=== PATIENT | male | born 1945 | race Hispanic/Latino ===

== ENCOUNTER 2017-08-20 16:15 | Observation (INO) | payer MEDICARE, OTHER ==
--- NOTE | 2017-08-20 16:59 | CT ---
PROCEDURE: CT HEAD WITHOUT CONTRAST. HISTORY: Code Stroke COMPARISON: None available. TECHNIQUE: Axial computed tomography images were obtained through the head/brain without intravenous contrast. Radiation dose: Total exam DLP = 759.00 mGy-cm. This CT exam was performed using one or more of the following dose reduction techniques: Automated exposure control, adjustment of the mA and/or kV according to patient size, and/or use of iterative reconstruction technique. FINDINGS: HEMORRHAGE: No intracranial hemorrhage. BRAIN: No mass effect or edema. Mild age-appropriate atrophy. Mild periventricular white matter lucency with scattered foci of deep and subcortical white matter lucency, consistent with chronic microvascular ischemic change. No evidence of acute infarct. VENTRICLES: Unremarkable. No hydrocephalus. CALVARIUM: Unremarkable. PARANASAL SINUSES: Unremarkable as visualized. No significant inflammatory changes. MASTOID AIR CELLS: Unremarkable as visualized. No inflammatory changes. OTHER FINDINGS: None. IMPRESSION: No intracranial hemorrhage. No evidence of acute infarct. Age-appropriate involutional changes. These findings were discussed by telephone with Dr. Gayle at 5 p.m. on 08/20/2017.
--- NOTE | 2017-08-20 17:00 | ED PDOC ---
Arrival/HPI - General Chief Complaint: Weakness/Neurological Deficit Time Seen by Provider: 08/20/17 16:17 Historian: Patient - History of Present Illness Narrative History of Present Illness (Text): 08/20/17 16:35 A 72 year old male, whose past medical history includes hypertension, hyperlipidemia, CAD s/p stent, presents to the emergency department complaining of left arm numbness that developed an hour prior to arrival. Patient became concerned because he reports symptoms feel similar to previous [facility]. Patient denies any other complaints at this time. no other weakness, or other complaints. 08/20/17 17:29 Time/Duration: 1 hour Symptom Onset: Sudden Symptom Course: Unchanged Activities at Onset: Rest Context: Home Past Medical History - Provider Review Nursing Documentation Reviewed: Yes - Tetanus Immunization Tetanus Immunization: Unknown - Cardiac Hx Cardiac Disorders: Yes Hx Hypertension: Yes - Pulmonary Hx Respiratory Disorders: No - Neurological Hx Neurological Disorder: No Hx Paralysis: No - HEENT Hx HEENT Disorder: No - Renal Hx Renal Disorder: No - Endocrine/Metabolic Hx Endocrine Disorders: No - Hematological/Oncological Hx Blood Disorders: No Hx Blood Transfusions: No - Integumentary Hx Dermatological Disorder: No - Musculoskeletal/Rheumatological Hx Falls: No - Gastrointestinal Hx Gastrointestinal Disorders: No - Genitourinary/Gynecological Hx Genitourinary Disorders: Yes Hx Reproductive Disorders: No - Psychiatric Hx Psychophysiologic Disorder: No Hx Emotional Abuse: No Hx Physical Abuse: No Hx Substance Use: No - Surgical History Hx Coronary Stent: Yes (x7) - Anesthesia Hx Anesthesia Reactions: No Hx Malignant Hyperthermia: No - Suicidal Assessment Feels Threatened In Home Enviroment: No Family/Social History - Physician Review Nursing Documentation Reviewed: Yes Family/Social History: No Known Family HX Smoking Status: Never Smoked Hx Alcohol Use: No Hx Substance Use: No Hx Substance Use Treatment: No Allergies/Home Meds Allergies/Adverse Reactions: Allergies No Known Allergies Allergy (Verified 08/20/17 16:32) Home Medications: Home Meds Medication Instructions Recorded Confirmed Metoprolol Succinate [Toprol XL] 50 mg PO DAILY 01/10/16 08/20/17 Review of Systems - Physician Review All systems were reviewed & negative as marked: Yes - Review of Systems Constitutional: absent: Fevers Musculoskeletal: Other (left arm numbness) Neurological: absent: Headache, Dizziness Physical Exam Vital Signs Reviewed: Yes Vital Signs Temp Pulse Resp BP Pulse Ox 08/20/17 16:28 97.9 F 68 15 151/91 H 96 Temperature: Afebrile Blood Pressure: Hypertensive Pulse: Regular Respiratory Rate: Normal Appearance: Positive for: Well-Appearing, Non-Toxic, Comfortable Pain Distress: None Mental Status: Positive for: Alert and Oriented X 3 - Systems Exam Head: Present: Atraumatic, Normocephalic Pupils: Present: PERRL Extroacular Muscles: Present: EOMI Conjunctiva: Present: Normal Mouth: Present: Moist Mucous Membranes Neck: Present: Normal Range of Motion Respiratory/Chest: Present: Clear to Auscultation, Good Air Exchange. No: Respiratory Distress, Accessory Muscle Use Cardiovascular: Present: Regular Rate and Rhythm, Normal S1, S2. No: Murmurs Abdomen: Present: Normal Bowel Sounds. No: Tenderness, Distention, Peritoneal Signs Back: Present: Normal Inspection Upper Extremity: Present: Normal Inspection. No: Cyanosis, Edema Lower Extremity: Present: Normal Inspection. No: Edema Neurological: Present: GCS=15, CN II-XII Intact, Speech Normal Skin: Present: Warm, Dry, Normal Color. No: Rashes Psychiatric: Present: Alert, Oriented x 3, Normal Insight, Normal Concentration Medical Decision Making ED Course and Treatment: 08/20/17 16:35 Impression: A 72 year old male with left arm numbness. consider cardiac, cva/tia Plan: -- EKG -- chest xray -- CT head -- labs -- Urinalysis -- Reassess and disposition Prior Visits: Notes and results from previous visits were reviewed. Patient was last seen in the emergency department on 10/18/17 for evaluation of chills and shortness of breath. Patient was admitted to Telemetry for sepsis due to UTI. Progress Notes: 08/20/17 16:43 Code stroke called. 08/20/17 16:45 EKG: Ordered, reviewed, and independently interpreted the EKG. Rate : 65 BPM Rhythm : NSR Interpretation : Nonspecific T wave changes 08/20/17 17:00 CT HEAD WITHOUT CONTRAST Creator : Ryan Wen MD FINDINGS: HEMORRHAGE: No intracranial hemorrhage. BRAIN: No mass effect or edema. Mild age-appropriate atrophy. Mild periventricular white matter lucency with scattered foci of deep and subcortical white matter lucency, consistent with chronic microvascular ischemic change. No evidence of acute infarct. VENTRICLES: Unremarkable. No hydrocephalus. CALVARIUM: Unremarkable. PARANASAL SINUSES: Unremarkable as visualized. No significant inflammatory changes. MASTOID AIR CELLS: Unremarkable as visualized. No inflammatory changes. IMPRESSION: No intracranial hemorrhage. No evidence of acute infarct. Age- appropriate involutional changes. These findings were discussed by telephone with Dr. Gayle at 5 p.m. on 2016. 08/20/17 17:[address] rodriguez business solution analyst. not tpa candidate given resolution of symptoms. 08/20/17 17:55 pt took asa today. 08/20/17 18:25 Chest xray: No active disease, as read by me. - Lab Interpretations Lab Results: 08/20/17 17:00 08/20/17 17:00 Lab Results 08/20/17 17:00: Blood Type B POSITIVE, Antibody Screen Negative, BBK History Checked Patient has bt 08/20/17 17:00: Sodium 142, Potassium 4.1, Chloride 104, Carbon Dioxide 27, Anion Gap 15, BUN 21, Creatinine 1.5, Est GFR ( Amer) 56, Est GFR (Non- Af Amer) 46, Random Glucose 102, Calcium 9.1, Magnesium 2.1, Total Bilirubin 0.7 , AST 35, ALT 39, Alkaline Phosphatase 78, Lactate Dehydrogenase 398, Total Creatine Kinase 79, Troponin I < 0.01 D, Total Protein 7.8, Albumin 4.4, Globulin 3.4, Albumin/Globulin Ratio 1.3, Triglycerides 428 H, Cholesterol 180, LDL Cholesterol Direct 89, HDL Cholesterol 34 08/20/17 17:00: PT 11.2, INR 1.03, APTT 39.6 H 08/20/17 17:00: WBC 8.0, RBC 4.12, Hgb 12.7 L, Hct 36.8 L, MCV 89.3, MCH 30.8, MCHC 34.5, RDW 12.6, Plt Count 251, MPV 10.0, Gran % 49.1 L, Lymph % (Auto) 39.3 H, [place] % (Auto) 9.4 H, Eos % (Auto) 1.9, Baso % (Auto) 0.3, Gran # 3.92, Lymph # 3.1, [place] # 0.8 H, Eos # 0.2, Baso # 0.02 I have reviewed the lab results: Yes - RAD Interpretation Radiology Orders: 08/20/17 16:40 CHEST PORTABLE [RAD] Stat 08/20/17 16:42 HEAD W/O (CODE STROKE) [CT] Stat - EKG Interpretation Interpreted by ED Physician: Yes Type: 12 lead EKG - Medication Orders Current Medication Orders: Discontinued Medications Aspirin (Aspirin) 325 mg PO STAT STA Stop: 08/20/17 17:56 NIHSS Scale ([place]) Time Performed: 17:28 - How Severe is the Stoke Baseline Level of Consciousness: 0=Alert LOC to Questions: 0=Both comments correct LOC to commands: 0=Obeys both correctly Best Gaze: 0=Normal Visual: 0=No visual loss Facial: 0=Normal Motor Arm - Left: 0=No drift Motor Arm - Right: 0=No drift Motor Leg - Left: 0=No drift Motor Leg - Right: 0=No drift Limb Ataxia: 0=Absent Sensory: 0=Normal Best Language: 0=No aphasia Dysarthia: 0=Normal articulation Extinction & Inattention (Neglect): 0=Normal, no object Score: 0 Risk Level: No Stroke Risk rTPA Inclusion/Exclusion - Refusal of Treatment Patient Refused Treatment: No - Inclusion Criteria for Altepase Patient is 18 years or Older: Yes The Clinical Diagnosis of Ischemic Stroke That is Causing a Potentially Disabling Neurological Deficit: No Time of Onset is Well Established to be Less Than 270 Minute Before Treatment Would Begin: Yes Risk/Benefit Discussed With Patient/Family Member Present: Yes - Scribe Statement The provider has reviewed the documentation as recorded by the Tiffany Ariza Provider Scribe Attestation: All medical record entries made by the Tiffany were at my direction and personally dictated by me. I have reviewed the chart and agree that the record accurately reflects my personal performance of the history, physical exam, medical decision making, and the department course for this patient. I have also personally directed, reviewed, and agree with the discharge instructions and disposition. Disposition/Present on Arrival - Present on Arrival Any Indicators Present on Arrival: No History of DVT/PE: No History of Uncontrolled Diabetes: No Urinary Catheter: No History of Decub. Ulcer: No History Surgical Site Infection Following: None - Disposition Have Diagnosis and Disposition been Completed?: Yes Diagnosis: Numbness Disposition: HOSPITALIZED Disposition Time: 06:00 Patient Problems: Current Active Problems Problem Status Onset Numbness Acute Condition: STABLE
[2017-08-20 17:08] LABS: BASO # 0.02 K/mm3 (0.0-2.0); BASO % 0.3 % (0.0-3.0); EOS # 0.2 (0.0-0.7); EOS % 1.9 % (1.5-5.0); GRAN # 3.92 (1.4-6.5); GRAN % 49.1 % (50.0-68.0); HEMATOCRIT 36.8 % (42.0-52.0); LYMPH # 3.1 (1.2-3.4); LYMPH % 39.3 % (22.0-35.0); MEAN CELL VOLUME 89.3 fl (80.0-105.0); MEAN CORPUSCULAR HEMOGLOBIN 30.8 pg (25.0-35.0); MEAN CORPUSCULAR HGB CONC 34.5 g/dl (31.0-37.0); MONO # 0.8 (0.1-0.6); MONO % 9.4 % (1.0-6.0); RED CELL DISTRIBUTION WIDTH 12.6 % (11.5-14.5)
[2017-08-20 17:18] LABS: ALB/GLOB RATIO 1.3 (1.1-1.8); ALKALINE PHOSPHATASE 78 U/L (38-126); ALT/SGPT 39 U/L (7-56); AST/SGOT 35 U/L (17-59); BILIRUBIN,TOTAL 0.7 mg/dL (0.2-1.3); BLOOD UREA NITROGEN 21 mg/dL (7-21); CALCIUM 9.1 mg/dL (8.4-10.5); CARBON DIOXIDE 27 mmol/L (21-33); CHLORIDE 104 mmol/L (98-107); CHOLESTEROL 180 mg/dL (130-200); GFR AFRICAN-AMERICAN 56; GLUCOSE,RANDOM 102 mg/dL (70-110); MAGNESIUM 2.1 mg/dL (1.7-2.2); POTASSIUM 4.1 mmol/L (3.6-5.0); SODIUM 142 mmol/L (132-148); TOTAL PROTEIN 7.8 g/dL (5.8-8.3)
[2017-08-20 17:22] LABS: INR 1.03 (0.93-1.08); PARTIAL THROMBOPLASTIN TIME 39.6 Seconds (25.1-36.5)
[2017-08-20 17:33] LABS: TROPONIN I < 0.01 ng/mL
--- NOTE | 2017-08-20 19:07 | CP.PCM.HP ---
<Blayne Robbins - Last Filed: 08/20/17 19:54> History of Present Illness - History of Present Illness History of Present Illness: 72 year old male with past medical history of HTN, HLD, CAD with several stents , presents due to numbness and tingling in his left arm. Patient states he was taking a nap and around 3pm today woke up and felt as his left arm was numb and felt tingling sensation. He denied any pain or radiation and was able to life up his arm. He stated the episode lasted for 30 minutes. He called his brother in law and was brought in to the hospital. He denied having a similar episode before. He denied having any slurred speech at home or weakness anywhere on his body. He denied any chest pain, shortness of breath, nausea, vomiting, palpitations, sweating, fever, sore throat or any other complaints. 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 Allergies: NKDA Social: denies tobacco use, alcohol socially, denies illicit drug use Medications: Lipitor, Toprol, Plavix, Aspirin Present on Admission - Present on Admission Any Indicators Present on Admission: No Review of Systems - Constitutional Constitutional: absent: Anorexia, Chills, Fever, Headache, Night Sweats - EENT Eyes: absent: Blurred Vision, Change in Vision Nose/Mouth/Throat: absent: Nasal Congestion, Nasal Discharge, Sore Throat - Cardiovascular Cardiovascular: absent: Chest Pain, Diaphoresis, Dyspnea, Palpitations, Radiating Pain, Rapid Heart Rate - Respiratory Respiratory: absent: Cough, Dyspnea, Dyspnea on Exertion, Chest Congestion - Gastrointestinal Gastrointestinal: absent: Abdominal Pain, Constipation, Diarrhea, Nausea - Genitourinary Genitourinary: absent: Change in Urinary Stream, Difficulty Urinating - Musculoskeletal Musculoskeletal: Numbness, Tingling. absent: Muscle Weakness Additional comments: left arm numbness and tingling - Integumentary Integumentary: absent: New Lesions, Rash - Neurological Neurological: Numbness, Tingling. absent: Dizziness, Headaches, Sensory Deficit - Endocrine Endocrine: absent: Cold Intolorance, Heat Intolorance Past Patient History - Tetanus Immunizations Tetanus Immunization: Unknown - Past Social History Smoking Status: Never Smoked - CARDIAC Hx Cardiac Disorders: Yes Hx Hypertension: Yes - PULMONARY Hx Respiratory Disorders: No - NEUROLOGICAL Hx Neurological Disorder: No Hx Paralysis: No - HEENT Hx HEENT Problems: No - RENAL Hx Chronic Kidney Disease: No - ENDOCRINE/METABOLIC Hx Endocrine Disorders: No - HEMATOLOGICAL/ONCOLOGICAL Hx Blood Disorders: No Hx Blood Transfusions: No - INTEGUMENTARY Hx Dermatological Problems: No - MUSCULOSKELETAL/RHEUMATOLOGICAL Hx Falls: No - GASTROINTESTINAL Hx Gastrointestinal Disorders: No - GENITOURINARY/GYNECOLOGICAL Hx Genitourinary Disorders: Yes Hx Reproductive Disorders: No - PSYCHIATRIC Hx Psychophysiologic Disorder: No Hx Emotional Abuse: No Hx Physical Abuse: No Hx Substance Use: No - SURGICAL HISTORY Hx Coronary Stent: Yes (x7) - ANESTHESIA Hx Anesthesia Reactions: No Hx Malignant Hyperthermia: No Meds Allergies/Adverse Reactions: Allergies Allergy/AdvReac Type Severity Reaction Status Date / Time No Known Allergies Allergy Verified 08/20/17 21:12 Physical Exam - Constitutional Appears: Non-toxic, No Acute Distress - Head Exam Head Exam: ATRAUMATIC, NORMAL INSPECTION, NORMOCEPHALIC - Eye Exam Eye Exam: EOMI, Normal appearance, PERRL Pupil Exam: NORMAL ACCOMODATION, PERRL - ENT Exam ENT Exam: Mucous Membranes Moist, Normal Exam - Neck Exam Neck exam: Positive for: Normal Inspection. Negative for: Lymphadenopathy - Respiratory Exam Respiratory Exam: Clear to Auscultation Bilateral, NORMAL BREATHING PATTERN - Cardiovascular Exam Cardiovascular Exam: REGULAR RHYTHM, +S1, +S2 - GI/Abdominal Exam GI & Abdominal Exam: Normal Bowel Sounds. absent: Tenderness - Extremities Exam Extremities exam: Positive for: full ROM, normal inspection, pedal pulses present - Neurological Exam Neurological exam: Alert, Oriented x3 - Psychiatric Exam Psychiatric exam: Normal Mood - Skin Skin Exam: Normal Color, Warm Results - Vital Signs Recent Vital Signs: Last Vital Signs Temp 97.9 F 08/20/17 16:28 Pulse 68 08/20/17 16:28 Resp 15 08/20/17 16:28 BP 151/91 H 08/20/17 16:28 Pulse Ox 96 08/20/17 16:28 - Labs Result Diagrams: 08/20/17 17:00 08/20/17 17:00 Assessment & Plan - Assessment and Plan (Free Text) Assessment: 1. Rule out ACS -EKG: -Intial Troponins negative, follow up serial -serial EKG daily -TSH level ordered - Aspiring 325 given in ED - Lipid Panel ordred: Triglycerides: 428, Total Cholesterol: 180 LDL: 89 - Lipitor 20mg started Plan: 1. Left Arm Numbness/Tingling-Rule out ACS, rule out CVA/TIA -EKG:EKG:NSR at 65 BPM, Non specific T wave changes, pending official read -CT Head: No intracranial hemorrhage. No evidence of acute infarct. Age- appropriate involutional changes. -Chest xray: no active disease, pending official read -Initial Troponins negative, follow up serial -serial EKG daily -TSH level ordered -hemoglobin A1C ordered -Aspiring 325 given in ED, continue 81mg -Lipid Panel ordered: Triglycerides: 428, Total Cholesterol: 180 LDL: 89 -Lipitor 20mg started -Neurology consulted: María: Not a candidate for TPA due to resolution of symptoms, will follow further recommendations -Cardiology consulted: Richard -Neurocrosalindackgallo -swallow evaluation 2. HLD -continue lipitor -Continue plavix -continue aspirin 3. HTN chornic -BP: 151/91 -continue home medication metoprolol 4. GI/DVT Prophylaxis -pantoprazole -sequential compression device <Derrick Keller - Last Filed: 08/21/17 15:15> Results - Vital Signs Recent Vital Signs: Last Vital Signs Temp 97.5 F L 08/21/17 12:00 Pulse 105 H 08/21/17 12:00 Resp 20 08/21/17 12:00 BP 171/91 H 08/21/17 12:00 Pulse Ox 96 08/21/17 05:46 - Labs Result Diagrams: 08/21/17 03:05 08/21/17 03:05 Labs: Laboratory Results - last 24 hr 08/20/17 08/20/17 08/20/17 21:21 21:45 23:40 WBC RBC Hgb Hct MCV MCH MCHC RDW Plt Count MPV Gran % Lymph % (Auto) Daniels % (Auto) Eos % (Auto) Baso % (Auto) Gran # Lymph # Daniels # Eos # Baso # Sodium Potassium Chloride Carbon Dioxide Anion Gap BUN Creatinine Est GFR ( Amer) Est GFR (Non-Af Amer) POC Glucose (mg/dL) 92 Random Glucose Calcium Total Bilirubin AST ALT Alkaline Phosphatase Troponin I < 0.01 Total Protein Albumin Globulin Albumin/Globulin Ratio Triglycerides Cholesterol LDL Cholesterol Direct HDL Cholesterol Urine Color Yellow Urine Appearance Sl cloudy Urine pH 6.0 Ur Specific [place] 1.010 Urine Protein Negative Urine Glucose (UA) Negative Urine Ketones Negative Urine Blood Negative Urine Nitrate Negative Urine Bilirubin Negative Urine Urobilinogen 0.2 Ur Leukocyte Esterase Small H Urine RBC 0 - 2 Urine WBC 5 - 10 Ur Epithelial Cells 3 - 4 Urine Bacteria Mod 08/21/17 08/21/17 08/21/17 03:05 03:05 13:00 WBC 9.0 RBC 4.12 Hgb 12.7 L Hct 36.9 L MCV 89.6 MCH 30.8 MCHC 34.4 RDW 12.8 Plt Count 230 MPV 9.9 Gran % 48.0 L Lymph % (Auto) 39.7 H Daniels % (Auto) 9.1 H Eos % (Auto) 3.0 Baso % (Auto) 0.2 Gran # 4.30 Lymph # 3.6 H Daniels # 0.8 H Eos # 0.3 Baso # 0.02 Sodium 144 Potassium 4.5 Chloride 106 Carbon Dioxide 28 Anion Gap 15 BUN 18 Creatinine 1.1 Est GFR ( Amer) > 60 Est GFR (Non-Af Amer) > 60 POC Glucose (mg/dL) Random Glucose 106 Calcium 9.4 Total Bilirubin 0.9 AST 33 ALT 38 Alkaline Phosphatase 70 Troponin I < 0.01 Total Protein 7.5 Albumin 4.2 Globulin 3.3 Albumin/Globulin Ratio 1.3 Triglycerides 390 H Cholesterol 183 LDL Cholesterol Direct 86 HDL Cholesterol 32 Urine Color Urine Appearance Urine pH Ur Specific [place] Urine Protein Urine Glucose (UA) Urine Ketones Urine Blood Urine Nitrate Urine Bilirubin Urine Urobilinogen Ur Leukocyte Esterase Urine RBC Urine WBC Ur Epithelial Cells Urine Bacteria Attending/Attestation - Attestation I have personally seen and examined this patient.: Yes I have fully participated in the care of the patient.: Yes I have reviewed all pertinent clinical information: Yes Notes (Text): 08/21/17 15:13 Patient was seen by me when he was on [address]. Agree with history ,physical examination, assessment and plan. Medical record was reviewed by me.
[2017-08-20 19:42] LABS: CHOLESTEROL 186 mg/dL (130-200)
[2017-08-20 23:04] VITALS: BMI 31.4
[2017-08-20] MEDS ORDERED: Influenza Vaccine 60 mcg/0.5 mL SYR (4YR UP) IM ONE (23:04)
[2017-08-20] MEDS ORDERED: Pneumococcal 23-Valent Vaccine IM ONE (23:04)
[2017-08-21 00:01] VITALS: O2SAT 96
[2017-08-21 00:25] LABS: URINE BILIRUBIN NEGATIVE (NEGATIVE); URINE BLOOD NEGATIVE (NEGATIVE); URINE GLUCOSE (UA) NEGATIVE (NEGATIVE); URINE KETONE NEGATIVE (NEGATIVE); URINE LEUKOCYTE ESTERASE SMALL Leu/uL (NEGATIVE); URINE PROTEIN NEGATIVE mg/dL (<30 mg/dL); URINE UROBILINOGEN 0.2 E.U./dL (<1 E.U./dL)
[2017-08-21 00:28] LABS: URINE COLOR YELLOW (YELLOW)
[2017-08-21 00:29] LABS: URINE APPEARANCE SL CLOUDY (CLEAR)
[2017-08-21 00:44] LABS: URINE RBC 0 - 2 /hpf (0-2)
[2017-08-21 00:45] LABS: URINE BACTERIA MOD (NEG)
[2017-08-21 03:16] LABS: BASO # 0.02 K/mm3 (0.0-2.0); BASO % 0.2 % (0.0-3.0); EOS # 0.3 (0.0-0.7); GRAN # 4.3 (1.4-6.5); HEMATOCRIT 36.9 % (42.0-52.0); LYMPH # 3.6 (1.2-3.4); LYMPH % 39.7 % (22.0-35.0); MEAN CELL VOLUME 89.6 fl (80.0-105.0); MEAN CORPUSCULAR HEMOGLOBIN 30.8 pg (25.0-35.0); MEAN CORPUSCULAR HGB CONC 34.4 g/dl (31.0-37.0); MEAN PLATELET VOLUME 9.9 fl (7.0-11.0); MONO # 0.8 (0.1-0.6); MONO % 9.1 % (1.0-6.0); RED CELL DISTRIBUTION WIDTH 12.8 % (11.5-14.5)
[2017-08-21 03:32] LABS: ALB/GLOB RATIO 1.3 (1.1-1.8); ALKALINE PHOSPHATASE 70 U/L (38-126); ALT/SGPT 38 U/L (7-56); AST/SGOT 33 U/L (17-59); BILIRUBIN,TOTAL 0.9 mg/dL (0.2-1.3); BLOOD UREA NITROGEN 18 mg/dL (7-21); CALCIUM 9.4 mg/dL (8.4-10.5); CARBON DIOXIDE 28 mmol/L (21-33); CHLORIDE 106 mmol/L (98-107); GFR AFRICAN-AMERICAN > 60; GLUCOSE,RANDOM 106 mg/dL (70-110); POTASSIUM 4.5 mmol/L (3.6-5.0); SODIUM 144 mmol/L (132-148); TOTAL PROTEIN 7.5 g/dL (5.8-8.3)
[2017-08-21 03:44] LABS: TROPONIN I < 0.01 ng/mL
--- NOTE | 2017-08-21 09:16 | CARD ---
APPROVED REPORT EKG Measurement Heart [id number] <Conclusion> Normal sinus rhythm NSSTW changes C/W ECG 10/18/16: ST depressions no longer present and the aret is slower
--- NOTE | 2017-08-21 09:40 | RAD ---
HISTORY: numbness COMPARISON: Portable chest 10/18/2016. FINDINGS: LUNGS: No active pulmonary disease. PLEURA: No significant pleural effusion identified, no pneumothorax apparent. CARDIOVASCULAR: Stable cardiomegaly. No pulmonary vascular derangement appreciated this time. OSSEOUS STRUCTURES: No significant abnormalities. VISUALIZED UPPER ABDOMEN: Normal. OTHER FINDINGS: None. IMPRESSION: Stable cardiomegaly. No acute cardiopulmonary changes as discussed above.
[2017-08-21] MEDS ORDERED: Metoprolol Succinate 50 mg XL Tab PO SCH (10:00)
--- NOTE | 2017-08-21 12:59 | CP.PCM.PN ---
<Timothy Buck - Last Filed: 08/21/17 13:21> Subjective - Date & Time of Evaluation Date of Evaluation: 08/21/17 Time of Evaluation: 09:00 - Subjective Subjective: patient was seen and examined. denies any current weakness, numbness/tingling, cp, sob, cough, abdominal pain, n/v/d, neck pain, headaches, changes in vision/ hearing, fevers/chills. states that he is worried about current state because his brother had a similar episode and ended up with a CABG Objective - Vital Signs/Intake and Output Vital Signs (last 24 hours): Temp Pulse Resp BP Pulse Ox 97.9 F 59 L 19 157/73 H 96 08/21/17 05:46 08/21/17 09:22 08/21/17 05:46 08/21/17 09:22 08/21/17 05:46 - Medications Medications: Current Medications [facility] [place] Admin: 08/21/17 09:21 Dose: 81 mg Atorvastatin Calcium (Lipitor) 20 mg PO QAM [facility] Last Admin: 08/21/17 09:22 Dose: 20 mg Clopidogrel Bisulfate (Plavix) 75 mg PO DAILY [facility] Last Admin: 08/21/17 09:21 Dose: 75 mg Metoprolol Succinate (Toprol Xl) 50 mg PO DAILY [facility] Last Admin: 08/21/17 09:22 Dose: 50 mg - Labs Labs: 08/21/17 03:05 08/21/17 03:05 PT 11.2 SECONDS (9.4-12.5) 08/20/17 17:00 INR 1.03 (0.93-1.08) 08/20/17 17:00 APTT 39.6 Seconds (25.1-36.5) H 08/20/17 17:00 - Constitutional Appears: Well, Non-toxic, No Acute Distress - Head Exam Head Exam: ATRAUMATIC, NORMAL INSPECTION, NORMOCEPHALIC - Eye Exam Eye Exam: EOMI, Normal appearance, PERRL Pupil Exam: NORMAL ACCOMODATION - ENT Exam ENT Exam: Mucous Membranes Moist, Normal Exam - Neck Exam Neck Exam: Full ROM, Normal Inspection - Respiratory Exam Respiratory Exam: Clear to Ausculation Bilateral, NORMAL BREATHING PATTERN. absent: Rales, Rhonchi, Wheezes - Cardiovascular Exam Cardiovascular Exam: RRR, +S1, +S2 - GI/Abdominal Exam GI & Abdominal Exam: Soft, Normal Bowel Sounds. absent: Distended, Tenderness - Extremities Exam Extremities Exam: Full ROM, Normal Inspection. absent: Calf Tenderness, Pedal Edema - Back Exam Back Exam: CVA tenderness (L), CVA tenderness (R), NORMAL INSPECTION - Neurological Exam Neurological Exam: Alert, Awake, CN II-XII Intact, Oriented x3, Reflexes Normal. absent: Motor Sensory Deficit Neuro motor strength exam: Left Upper Extremity: 5, Right Upper Extremity: 5, Left Lower Extremity: 5, Right Lower Extremity: 5 - Psychiatric Exam Psychiatric exam: Normal Affect, Normal Mood - Skin Skin Exam: Normal Color, Warm Assessment and Plan - Assessment and Plan (Free Text) Assessment: 72yo M PMH CAD s/p 5 stents, HTN, HLD and BPH who presented w/ LUE numbness and tingling that lasted for 30 mins, likely due to nerve impingement vs TIA vs CVA vs ACS; CVA unlikely due to negative CT Head and resolution of symptoms; ACS unlikely due to negative troponin and no acute EKG changes. CODE STROKE was called in ED; no TPA given. Tronin I negative x3. Plan: 1. LUE numbness/tingling, resolved; likely 2/2 TIA vs nerve impingement - TSH level normal - f/u A1C - continue ASA 81mg - Neurology consulted, rec against MRI due to resolution of symptoms - Cardiology consulted, recs appreciated - Neurochecks - swallow evaluation - PT eval 2. CAD s/p stents - cont ASA and Plavix - currently no chest pain and w/u has been negative 3. Hx HTN - cont Toprol 50mg daily 4. Hx HLD - Lipid Panel re-ordered, still showing elevated TG - cont Lipitor 20 PTX/SCDs HHD Patient was seen, examined and discussed with attending, Cielo Heard PGY1 <Gerardo Gibson - Last Filed: 08/21/17 16:23> Objective - Vital Signs/Intake and Output Vital Signs (last 24 hours): Temp Pulse Resp BP Pulse Ox 97.5 F L 105 H 20 171/91 H 96 08/21/17 12:00 08/21/17 12:00 08/21/17 12:00 08/21/17 12:00 08/21/17 05:46 Intake and Output: 08/21/17 08/21/17 06:59 18:59 Intake Total 660 Balance 660 - Medications Medications: Current Medications Aspirin (Ecotrin) 81 mg PO QAM [facility] Last Admin: 08/21/17 09:21 Dose: 81 mg Atorvastatin Calcium (Lipitor) 20 mg PO QAM [facility] Last Admin: 08/21/17 09:22 Dose: 20 mg Clopidogrel Bisulfate (Plavix) 75 mg PO DAILY [facility] Last Admin: 08/21/17 09:21 Dose: 75 mg Metoprolol Succinate (Toprol Xl) 50 mg PO DAILY [facility] Last Admin: 08/21/17 09:22 Dose: 50 mg - Labs Labs: 08/21/17 03:05 08/21/17 03:05 PT 11.2 SECONDS (9.4-12.5) 08/20/17 17:00 INR 1.03 (0.93-1.08) 08/20/17 17:00 APTT 39.6 Seconds (25.1-36.5) H 08/20/17 17:00 Attending/Attestation - Attestation I have personally seen and examined this patient.: Yes I have fully participated in the care of the patient.: Yes I have reviewed all pertinent clinical information, including history, physical exam and plan: Yes Notes (Text): I have seen and examined the patient at bedside. Agree with the above note with the following additions/ exceptions: Briefly this is 72 year old male with history of CAD s/p 5 stents, HTN, HLD and BPH who presented with LUE numbness and tingling which lasted for about 30 min. He was admitted to r/o TIA. Patient feels fine and denies any complaints. Neuro exam is totally normal. He was able to walk in a steady state. Bed side speech eval was done and patient was able to eat without any problem. CT head was normal. Serial cardiac enzymes and EKG were within normal limits. Patient is cleared from sap crm developer and neurologist for discharge. He was found to have triglyceridemia. Advised patient regarding life style modifications and continue lipitor. Continue all home meds. HBA1C pending. Advised patient to call back to follow up on results. Upon discharge patient will follow up with Dr Davidson. Dr Gerardo Gibson
[2017-08-21 13:00] VITALS: BP 171/91; PULSE 105; RESP 20; TEMP 97.5
[2017-08-21 13:18] LABS: CHOLESTEROL 183 mg/dL (130-200)
--- NOTE | 2017-08-21 18:23 | CP.PCM.DIS ---
Provider - Provider Date of Admission: 08/20/17 17:53 Attending physician: Gerardo Gibson MD Primary care physician: Earl Egan MD Time Spent in preparation of Discharge (in minutes): 40 Hospital Course - Lab Results Lab Results: Most Recent Lab Values WBC 9.0 10^3/ul (4.5-11.0) 08/21/17 03:05 RBC 4.12 10^6/uL (3.5-6.1) 08/21/17 03:05 Hgb 12.7 g/dL (14.0-18.0) L 08/21/17 03:05 Hct 36.9 % (42.0-52.0) L 08/21/17 03:05 MCV 89.6 fl (80.0-105.0) 08/21/17 03:05 MCH 30.8 pg (25.0-35.0) 08/21/17 03:05 MCHC 34.4 g/dl (31.0-37.0) 08/21/17 03:05 RDW 12.8 % (11.5-14.5) 08/21/17 03:05 Plt Count 230 10^3/uL (120.0-450.0) 08/21/17 03:05 MPV 9.9 fl (7.0-11.0) 08/21/17 03:05 Gran % 48.0 % (50.0-68.0) L 08/21/17 03:05 Lymph % (Auto) 39.7 % (22.0-35.0) H 08/21/17 03:05 [place] % (Auto) 9.1 % (1.0-6.0) H 08/21/17 03:05 Eos % (Auto) 3.0 % (1.5-5.0) 08/21/17 03:05 Baso % (Auto) 0.2 % (0.0-3.0) 08/21/17 03:05 Gran # 4.30 (1.4-6.5) 08/21/17 03:05 Lymph # 3.6 (1.2-3.4) H 08/21/17 03:05 [place] # 0.8 (0.1-0.6) H 08/21/17 03:05 Eos # 0.3 (0.0-0.7) 08/21/17 03:05 Baso # 0.02 K/mm3 (0.0-2.0) 08/21/17 03:05 PT 11.2 SECONDS (9.4-12.5) 08/20/17 17:00 INR 1.03 (0.93-1.08) 08/20/17 17:00 APTT 39.6 Seconds (25.1-36.5) H 08/20/17 17:00 Sodium 144 mmol/L (132-148) 08/21/17 03:05 Potassium 4.5 mmol/L (3.6-5.0) 08/21/17 03:05 Chloride 106 mmol/L (98-107) 08/21/17 03:05 Carbon Dioxide 28 mmol/L (21-33) 08/21/17 03:05 Anion Gap 15 (10-20) 08/21/17 03:05 BUN 18 mg/dL (7-21) 08/21/17 03:05 Creatinine 1.1 mg/dL (0.8-1.5) 08/21/17 03:05 Est GFR ( Amer) > 60 08/21/17 03:05 Est GFR (Non-Af Amer) > 60 08/21/17 03:05 POC Glucose (mg/dL) 92 mg/dL (65-110) 08/20/17 21:21 Random Glucose 106 mg/dL (70-110) 08/21/17 03:05 Calcium 9.4 mg/dL (8.4-10.5) 08/21/17 03:05 Magnesium 2.1 mg/dL (1.7-2.2) 08/20/17 17:00 Total Bilirubin 0.9 mg/dL (0.2-1.3) 08/21/17 03:05 AST 33 U/L (17-59) 08/21/17 03:05 ALT 38 U/L (7-56) 08/21/17 03:05 Alkaline Phosphatase 70 U/L (38-126) 08/21/17 03:05 Lactate Dehydrogenase 398 U/L (333-699) 08/20/17 17:00 Total Creatine Kinase 79 U/L (35-230) 08/20/17 17:00 Troponin I < 0.01 ng/mL 08/21/17 03:05 Total Protein 7.5 g/dL (5.8-8.3) 08/21/17 03:05 Albumin 4.2 g/dL (3.0-4.8) 08/21/17 03:05 Globulin 3.3 gm/dL 08/21/17 03:05 Albumin/Globulin Ratio 1.3 (1.1-1.8) 08/21/17 03:05 Triglycerides 390 mg/dL (35-160) H 08/21/17 13:00 Cholesterol 183 mg/dL (130-200) 08/21/17 13:00 LDL Cholesterol Direct 86 mg/dL (0-129) 08/21/17 13:00 HDL Cholesterol 32 mg/dL (29-60) 08/21/17 13:00 TSH 3rd Generation 2.44 mIU/mL (0.46-4.68) 08/20/17 17:00 Urine Color Yellow (YELLOW) 08/20/17 23:40 Urine Appearance Sl cloudy (CLEAR) 08/20/17 23:40 Urine pH 6.0 (4.7-8.0) 08/20/17 23:40 Ur Specific [place] 1.010 (1.005-1.035) 08/20/17 23:40 Urine Protein Negative mg/dL (<30 mg/dL) 08/20/17 23:40 Urine Glucose (UA) Negative mg/dL (NEGATIVE) 08/20/17 23:40 Urine Ketones Negative mg/dL (NEGATIVE) 08/20/17 23:40 Urine Blood Negative (NEGATIVE) 08/20/17 23:40 Urine Nitrate Negative (NEGATIVE) 08/20/17 23:40 Urine Bilirubin Negative (NEGATIVE) 08/20/17 23:40 Urine Urobilinogen 0.2 E.U./dL (<1 E.U./dL) 08/20/17 23:40 Ur Leukocyte Esterase Small [place]/uL (NEGATIVE) H 08/20/17 23:40 Urine RBC 0 - 2 /hpf (0-2) 08/20/17 23:40 Urine WBC 5 - 10 /hpf (0-6) 08/20/17 23:40 Ur Epithelial Cells 3 - 4 /hpf (0-5) 08/20/17 23:40 Urine Bacteria Mod (NEG) 08/20/17 23:40 Blood Type B POSITIVE 08/20/17 17:00 Antibody Screen Negative 08/20/17 17:00 BBK History Checked Patient has bt 08/20/17 17:00 - Hospital Course Hospital Course: 72 year old male with past medical history of HTN, HLD, CAD with several stents , presents due to numbness and tingling in his left arm. Patient states he was taking a nap and around 3pm today woke up and felt as his left arm was numb and felt tingling sensation. He denied any pain or radiation and was able to life up his arm. He stated the episode lasted for 30 minutes. He called his brother in law and was brought in to the hospital. He denied having a similar episode before. He denied having any slurred speech at home or weakness anywhere on his body. CODE STROKE was called in ED; no TPA given. Patient was transferred to telemetry for monitoring. Physical exam was normal and pt showed no focal deficits or any weakness. Cardio and Neuro were consulted. CT Head showed no intracranial hemorrhage or evidence of acute infarcts. CXR showed stable cardiomegaly. Troponin negative x3. EKG was NSR with nonspecific ST wave changes. Cardio and Neurology both cleared pt for d/c. Pt stated that he had all his meds and needed no refills. Educated about f/u with PMD after d/c. Pt medically cleared for d/c. - Date & Time of H&P Date of H&P: 08/20/17 Time of H&P: 19:03 Discharge Exam - Additional Findings Additional findings: - Constitutional Appears: Well, Non-toxic, No Acute Distress - Head Exam Head Exam: ATRAUMATIC, NORMAL INSPECTION, NORMOCEPHALIC - Eye Exam Eye Exam: EOMI, Normal appearance, PERRL Pupil Exam: NORMAL ACCOMODATION - ENT Exam ENT Exam: Mucous Membranes Moist, Normal Exam - Neck Exam Neck Exam: Full ROM, Normal Inspection - Respiratory Exam Respiratory Exam: Clear to Ausculation Bilateral, NORMAL BREATHING PATTERN. absent: Rales, Rhonchi, Wheezes - Cardiovascular Exam Cardiovascular Exam: RRR, +S1, +S2 - GI/Abdominal Exam GI & Abdominal Exam: Soft, Normal Bowel Sounds. absent: Distended, Tenderness - Extremities Exam Extremities Exam: Full ROM, Normal Inspection. absent: Calf Tenderness, Pedal Edema - Back Exam Back Exam: CVA tenderness (L), CVA tenderness (R), NORMAL INSPECTION - Neurological Exam Neurological Exam: Alert, Awake, CN II-XII Intact, Oriented x3, Reflexes Normal. absent: Motor Sensory Deficit Neuro motor strength exam: Left Upper Extremity: 5, Right Upper Extremity: 5, Left Lower Extremity: 5, Right Lower Extremity: 5 - Psychiatric Exam Psychiatric exam: Normal Affect, Normal Mood - Skin Skin Exam: Normal Color, Warm Discharge Plan - Follow Up Plan Condition: STABLE Disposition: HOME/ ROUTINE Instructions: Transient Ischemic Attack (DC), Sepsis (DC), Sepsis (GEN) Additional Instructions: - please follow-up with your PMD - continue your home medications - if you feel any worsening of symptoms, continued numbness/tingling, weakness, slurred speech or facial droop, please return to ER for further evaluation Thank you Timothy Buck, PGY1 Dr. Gibson, Attending Physician Referrals: Earl Egan MD [Primary Care Provider] -
--- NOTE | 2017-08-22 02:01 | CON ---
DATE: CARDIOLOGY CONSULTATION REASON FOR CONSULTATION: Left arm numbness. HISTORY OF PRESENT ILLNESS: The patient is 72-year-old male who has history of coronary artery disease status post coronary artery stenting. The patient said he has total of 5 stents in the past. The most recent one was few years ago. He presented because of left arm numbness. He was alarmed by younger brother of his who recently acquired open heart bypass surgery. The patient denies any substernal chest pain. Denies any speech difficulty, dizziness, or gait problems. SOCIAL HISTORY: The patient is nonsmoker. MEDICATIONS: Aspirin 81 mg once daily, Lipitor 20 once a day, Plavix 75 mg once a day, Toprol XL 50 mg once a day, which are the same home medications. REVIEW OF SYSTEMS: No nausea or vomiting. No fever or chills. No dizziness or syncope. No speech difficulty. No headache. No blurry vision. No productive cough. PHYSICAL EXAMINATION: GENERAL: The patient is an elderly male, who does not appear to be in any distress. VITAL SIGNS: Blood pressure 171/91, heart rate 105, and temperature 97.5, respirations 20. HEENT: Normocephalic. NECK: No JVD. CHEST: Clear. HEART: S1 and S2 regular. ABDOMEN: Soft. EXTREMITIES: No edema. LABORATORY DATA: Hemoglobin and hematocrit 12.7 and 36.9, white count and platelet count are within normal limits. SMA-7 today is within normal limits. Three sets of troponin are negative. Triglycerides are elevated at 424. The rest of lipid profile is within normal limit. TSH level is within normal limit. Liver enzymes are within normal limit. EKG revealed sinus rhythm, left atrial enlargement, nonspecific inferior T wave changes. Head CT scan without contrast. No intracranial hemorrhage or acute infarct. Age appropriate and delusional changes. ASSESSMENT: 1. Left arm numbness. 2. History of coronary artery disease status post multiple coronary stenting in the past. The patient is currently chest pain free. Cardiac enzymes are negative and EKG revealed no acute ischemic changes. 3. Hypertriglyceridemia. RECOMMENDATIONS: Continue current aspirin 81 mg once a day, Lipitor 20 mg once a day, Plavix 75 mg once a day, Toprol XL at 50 mg once a day. The most recent echo from 09/2016 revealed normal ejection fraction and mild pulmonary hypertension and Myoview stress test in 12/2015 revealed normal gaited wall motion, reveals mild anterior defects suspicious for ischemia. The patient can be discharged and followup with his scrap worker Dr. Ryan Ramos as an outpatient. The cardiac catheterization at that time did not reveal any significant coronary artery disease and no intervention was performed. The patient can be discharged from the cardiac point and he follows by his scrap worker Dr. Ryan Ramos as an outpatient. Yariel Pink MD
--- NOTE | 2017-08-23 09:22 | CON ---
DATE: HISTORY OF PRESENT ILLNESS: This is a 72-year-old male with past medical history of hypertension, hyperlipidemia, coronary artery disease status post stents, came to the hospital because the patient was sitting and felt numbness in the left upper extremity and symptoms disappeared, feels better. CAT scan of the head was done, which was reported negative. PAST MEDICAL HISTORY: As above. SOCIAL HISTORY: Does not smoke, does not drink. ALLERGIES: NO KNOWN DRUG ALLERGY. HOME MEDICATION: Metoprolol. REVIEW OF SYSTEMS: Ten-point review of system is negative. PHYSICAL EXAMINATION: VITAL SIGNS: Blood pressure 151/91. HEENT: Normocephalic, atraumatic. NECK: Supple. NEUROLOGIC: Alert, awake, and oriented x3. No aphasia. Cranial nerves II to XII are tested. Pupils reactive. EOM intact. Visual crespo full. No facial asymmetry. Tongue in the midline. Motor examination, moves all the extremities equally. Tone normal. Deep tendon reflexes 2+. Both plantars are downgoing. Sensory appears intact. Cerebellar, gait deferred. IMPRESSION AND PLAN: Numbness of the left upper extremity, less likely transient ischemic attack and CAT scan of the head is negative, workup is negative. Continue present management. We will follow up. Continue as planned. iHpolito Daniel MD
== END 2017-08-21 16:59 | disposition home or self-care (01) ==
LOC: ED 16:15 → ERH 17:53 → 2RNO 20:43
PROVIDERS: ADMIT Hospitalist; ATTEND Hospitalist
DX: R20.0 Anesthesia of skin (principal); R20.2 Paresthesia of skin; I11.9 Hypertensive heart disease without heart failure; E78.5 Hyperlipidemia, unspecified; I25.10 Atherosclerotic heart disease of native coronary artery without angina pectoris; Z95.5 Presence of coronary angioplasty implant and graft; E78.1 Pure hyperglyceridemia; I27.20 Pulmonary hypertension, unspecified; N40.0 Benign prostatic hyperplasia without lower urinary tract symptoms
CPT/HCPCS: 36415; 70450; 71010; 80053; 80061; 81001; 82550; 82948; 83036; 83615; 83735; 84443; 84484; 85025; 85610; 85730; 86850; 86900; 93005; 99285; G0378

== ENCOUNTER 2017-12-28 14:07 | Inpatient (IN) | payer MEDICARE, OTHER ==
[2017-12-28 14:07] VITALS: BMI 31.4
--- NOTE | 2017-12-28 14:28 | ED PDOC ---
Arrival/HPI - General Chief Complaint: Syncope Time Seen by Provider: 12/28/17 14:14 Historian: Patient - History of Present Illness Narrative History of Present Illness (Text): 12/28/17 14:20 72 year old male, whose past medical history includes hypertension, hyperlipidemia, and CAD, who presents to the emergency department s/p loss of consciousness prior to arrival. Patient's reports he was showering and the next thing he remembers is waking up to his getting him out the shower. He states having chills last night and notes he has been previously evaluated in the emergency department for UTI sepsis. Patient denies hitting his head, having chest pain, shortness of breath, abdominal pain, back pain, or other complaints. PMD: Dr. Card Time/Duration: Prior to Arrival Symptom Onset: Sudden Symptom Course: Improving Activities at Onset: Light Context: Home Past Medical History - Provider Review Nursing Documentation Reviewed: Yes - Infectious Disease Hx of Infectious Diseases: None - Tetanus Immunization Tetanus Immunization: Unknown - Cardiac Hx Cardiac Disorders: Yes (CAD) Hx Hypertension: Yes - Pulmonary Hx Respiratory Disorders: No - Neurological Hx Neurological Disorder: No - HEENT Hx HEENT Disorder: No - Renal Hx Renal Disorder: No - Endocrine/Metabolic Hx Endocrine Disorders: No - Hematological/Oncological Hx Blood Disorders: No - Integumentary Hx Dermatological Disorder: No - Musculoskeletal/Rheumatological Hx Falls: No - Gastrointestinal Hx Gastrointestinal Disorders: No - Genitourinary/Gynecological Hx Genitourinary Disorders: Yes Hx Urinary Tract Infection: Yes - Psychiatric Hx Psychophysiologic Disorder: No Hx Emotional Abuse: No Hx Physical Abuse: No Hx Substance Use: No - Surgical History Hx Coronary Stent: Yes (x7) - Anesthesia Hx Anesthesia Reactions: No Hx Malignant Hyperthermia: No - Suicidal Assessment Feels Threatened In Home Enviroment: No Family/Social History - Physician Review Nursing Documentation Reviewed: Yes Family/Social History: Unknown Family HX Smoking Status: Never Smoked Hx Alcohol Use: Yes (SOCIALLY) Hx Substance Use: No Hx Substance Use Treatment: No Allergies/Home Meds Allergies/Adverse Reactions: Allergies No Known Allergies Allergy (Verified 12/28/17 14:21) Home Medications: Home Meds Medication Instructions Recorded Confirmed Metoprolol Succinate [Toprol XL] 50 mg PO DAILY 01/10/16 12/28/17 Review of Systems - Physician Review All systems were reviewed & negative as marked: Yes - Review of Systems Constitutional: Fatigue, Other (chills) Respiratory: absent: SOB Cardiovascular: absent: Chest Pain Neurological: Other (loss of consciousness) Physical Exam - Physical Exam Narrative Physical Exam (Text): 12/28/17 Constitutional: No acute distress. Head: Normocephalic. Atraumatic. Eyes: PERRL. ENT: Moist mucous membranes. Neck: Supple. No midline tenderness. Cardiovascular: Regular rate. Chest: No tenderness. Respiratory: Clear to auscultation bilaterally. GI: Soft. Nontender. Nondistended. Back: No CVA tenderness. No midline tenderness. Musculoskeletal: No tenderness or swelling of extremities. FROM x 4 upper and lower extremities. Pelvis is stable. Skin: No rash. Neurologic: Alert, no focal deficit. Vital Signs Reviewed: Yes Vital Signs Temp Pulse Resp BP Pulse Ox 12/28/17 17:30 78 17 136/66 97 12/28/17 16:12 78 18 164/76 H 100 12/28/17 14:19 98 F 72 18 148/80 96 Temperature: Afebrile Blood Pressure: Normal Pulse: Regular Respiratory Rate: Normal Appearance: Positive for: Well-Appearing, Non-Toxic, Comfortable Pain Distress: None Mental Status: Positive for: Alert and Oriented X 3 Medical Decision Making ED Course and Treatment: 12/28/17 Impression: 72 year old male with unremarkable physical exam complaining of losing consciousness prior to arrival Plan: -- EKG -- Chest X-ray -- CT Head -- Labs -- Urinalysis -- Reassess and disposition Progress Notes: EKG: Ordered, reviewed, and independently interpreted the EKG. Rate : 75 BPM Rhythm : NSR Interpretation : No ST-segment elevations or depressions, no T-wave inversions, normal intervals. 12/28/17 15:07 CT HEAD FINDINGS: HEMORRHAGE: No intracranial hemorrhage. BRAIN: No mass effect or edema. No atrophy or chronic microvascular ischemic changes. VENTRICLES: Unremarkable. No hydrocephalus. CALVARIUM: Unremarkable. PARANASAL SINUSES: Unremarkable as visualized. No significant inflammatory changes. MASTOID AIR CELLS: Unremarkable as visualized. No inflammatory changes. OTHER FINDINGS: None. IMPRESSION: No acute findings Patient with leuckotysos in setting of UTI with syncope, same presentation as previous UTI sepsis. Start IV antibiotics, telemetry monitoring, Urology [place] consultation. Dr. Mujica accepts to hospitalist service. - Lab Interpretations Lab Results: 12/28/17 14:30 12/28/17 14:30 Lab Results 12/28/17 17:15: Urine Color Yellow, Urine Appearance Clear, Urine pH 6.0, Ur Specific [place] 1.010, Urine Protein Negative, Urine Glucose (UA) Negative, Urine Ketones Negative, Urine Blood Trace-intact H, Urine Nitrate Positive H, Urine Bilirubin Negative, Urine Urobilinogen 0.2, Ur Leukocyte Esterase Large H , Urine RBC 2 - 5, Urine WBC 25 - 30, Ur Epithelial Cells None, Urine Bacteria Many, Urine Other Uyeast 12/28/17 14:32: POC Glucose (mg/dL) 102 12/28/17 14:30: pO2 42, VBG pH 7.35, VBG pCO2 50.0, VBG HCO3 27.6, VBG Total CO2 29.1 H, VBG O2 Sat (Calc) 82.3 H, VBG Base Excess 1.2, VBG Potassium 4.3, Sodium 137.0, Chloride 105.0, Glucose 105, Lactate 1.3, FiO2 21.0, Venous Blood Potassium 4.3 12/28/17 14:30: Sodium 143, Chloride 103, Potassium 4.2, Carbon Dioxide 27, Anion Gap 17, BUN 21, Creatinine 1.0, Est GFR ( Amer) > 60, Est GFR (Non- Af Amer) > 60, Random Glucose 110, Calcium 10.1, Total Bilirubin 1.3, AST 31, ALT 29, Alkaline Phosphatase 75, Total Creatine Kinase 52, Troponin I < 0.01, Total Protein 8.4 H, Albumin 4.4, Globulin 4.0, Albumin/Globulin Ratio 1.1 12/28/17 14:30: PT 12.1, INR 1.06, APTT 36.7 H 12/28/17 14:30: WBC 14.0 H D, RBC 4.02, Hgb 12.2 L, Hct 36.6 L, MCV 91.0, MCH 30.3, MCHC 33.3, RDW 12.9, Plt Count 300, MPV 10.8, Gran % 64.6, Lymph % (Auto) 21.3 L, [place] % (Auto) 13.3 H, Eos % (Auto) 0.6 L, Baso % (Auto) 0.2, Gran # 9.01 H, Lymph # (Auto) 3.0, [place] # (Auto) 1.9 H, Eos # (Auto) 0.1, Baso # (Auto ) 0.03 I have reviewed the lab results: Yes - RAD Interpretation Radiology Orders: 12/28/17 14:26 HEAD W/O CONTRAST [CT] Stat CHEST TWO VIEWS (PA/LAT) [RAD] Stat Medical Doctor Md: Radiologist - EKG Interpretation Interpreted by ED Physician: Yes Type: 12 lead EKG - Medication Orders Current Medication Orders: Discontinued Medications Levofloxacin/Dextrose (Levaquin 750mg) 750 mg IVPB STAT STA PRN Reason: Protocol Stop: 12/28/17 18:04 - Scribe Statement The provider has reviewed the documentation as recorded by the Tiffany Baires Provider Scribe Attestation: All medical record entries made by the Scribe were at my direction and personally dictated by me. I have reviewed the chart and agree that the record accurately reflects my personal performance of the history, physical exam, medical decision making, and the department course for this patient. I have also personally directed, reviewed, and agree with the discharge instructions and disposition. Disposition/Present on Arrival - Present on Arrival Any Indicators Present on Arrival: No History of DVT/PE: No History of Uncontrolled Diabetes: No Urinary Catheter: No History of Decub. Ulcer: No History Surgical Site Infection Following: None - Disposition Have Diagnosis and Disposition been Completed?: Yes Diagnosis: UTI (urinary tract infection), Leukocytosis, CVA (cerebral vascular accident) Disposition: HOSPITALIZED Disposition Time: 18:03 Patient Plan: Admission, Telemetry Condition: FAIR
[2017-12-28 14:57] LABS: BASO # 0.03 K/mm3 (0.0-2.0); BASO % 0.2 % (0.0-3.0); EOS # 0.1 (0.0-0.7); EOS % 0.6 % (1.5-5.0); GRAN # 9.01 (1.4-6.5); GRAN % 64.6 % (50.0-68.0); HEMOGLOBIN 12.2 g/dL (14.0-18.0); LYMPH % 21.3 % (22.0-35.0); MEAN CORPUSCULAR HEMOGLOBIN 30.3 pg (25.0-35.0); MEAN CORPUSCULAR HGB CONC 33.3 g/dl (31.0-37.0); MEAN PLATELET VOLUME 10.8 fl (7.0-11.0); MONO # 1.9 (0.1-0.6); MONO % 13.3 % (1.0-6.0); RBC 4.02 10^6/uL (3.5-6.1); RED CELL DISTRIBUTION WIDTH 12.9 % (11.5-14.5)
[2017-12-28 15:05] LABS: ALB/GLOB RATIO 1.1 (1.1-1.8); ALBUMIN 4.4 g/dL (3.0-4.8); ALT/SGPT 29 U/L (7-56); AST/SGOT 31 U/L (17-59); BLOOD UREA NITROGEN 21 mg/dL (7-21); CALCIUM 10.1 mg/dL (8.4-10.5); GFR AFRICAN-AMERICAN > 60; GFR NON-AFRICAN AMERICAN > 60
--- NOTE | 2017-12-28 15:05 | CT ---
PROCEDURE: CT HEAD WITHOUT CONTRAST. HISTORY: syncope and fall COMPARISON: 08/20/2017 CT TECHNIQUE: Axial computed tomography images were obtained through the head/brain without intravenous contrast. Radiation dose: Total exam DLP = 873 mGy-cm. This CT exam was performed using one or more of the following dose reduction techniques: Automated exposure control, adjustment of the mA and/or kV according to patient size, and/or use of iterative reconstruction technique. FINDINGS: HEMORRHAGE: No intracranial hemorrhage. BRAIN: No mass effect or edema. No atrophy or chronic microvascular ischemic changes. VENTRICLES: Unremarkable. No hydrocephalus. CALVARIUM: Unremarkable. PARANASAL SINUSES: Unremarkable as visualized. No significant inflammatory changes. MASTOID AIR CELLS: Unremarkable as visualized. No inflammatory changes. OTHER FINDINGS: None. IMPRESSION: No acute findings
[2017-12-28 15:06] LABS: INR 1.06 (0.93-1.08); PARTIAL THROMBOPLASTIN TIME 36.7 Seconds (25.1-36.5); PROTHROMBIN TIME 12.1 SECONDS (9.4-12.5)
[2017-12-28 15:16] LABS: TROPONIN I < 0.01 ng/mL
[2017-12-28 15:20] LABS: VENOUS BLOOD GAS BASE EXCESS 1.2 mmol/L (0.0-2.0); VENOUS BLOOD GAS PO2 42 mm/Hg (30-55); VENOUS BLOOD PH 7.35 (7.32-7.43)
--- NOTE | 2017-12-28 16:18 | RAD ---
HISTORY: chills COMPARISON: 08/20/2017 TECHNIQUE: Chest PA and lateral FINDINGS: LUNGS: No active pulmonary disease. PLEURA: No significant pleural effusion identified. No pneumothorax apparent. CARDIOVASCULAR: Normal. OSSEOUS STRUCTURES: No significant abnormalities. VISUALIZED UPPER ABDOMEN: Normal. OTHER FINDINGS: None. IMPRESSION: No active disease.
[2017-12-28 17:29] LABS: URINE BILIRUBIN NEGATIVE (NEGATIVE); URINE BLOOD TRACE-INTACT (NEGATIVE); URINE GLUCOSE (UA) NEGATIVE (NEGATIVE); URINE LEUKOCYTE ESTERASE LARGE Leu/uL (NEGATIVE); URINE NITRATE POSITIVE (NEGATIVE); URINE PROTEIN NEGATIVE mg/dL (<30 mg/dL); URINE UROBILINOGEN 0.2 E.U./dL (<1 E.U./dL)
[2017-12-28 17:39] LABS: URINE APPEARANCE CLEAR (CLEAR); URINE COLOR YELLOW (YELLOW)
[2017-12-28 17:48] LABS: URINE BACTERIA MANY (NEG); URINE WBC 25 - 30 /hpf (0-6)
[2017-12-28] MEDS ORDERED: levoFLOXacin 750 mg in D5W 150 ML BAG IVPB STA (18:03)
--- NOTE | 2017-12-28 19:26 | CP.PCM.HP ---
<LuuJason - Last Filed: 12/28/17 20:20> History of Present Illness - History of Present Illness History of Present Illness: Mr. Drummond is a 72 year old male with a past medical history significant for BPH, CAD s/p five TATO, urosepsis and recurrent UTI's who presented after a syncopal episode approximately 12 hours prior to arrival with associated chills and generalized fatigue. Patient reports that last night he went to bed at approximately 2000 feeling well but awoke several hours later with shaking chills. He reports that he then went back to sleep and awoke at approximately 0600 feeling weaker than he normally does upon waking up from sleep. He then decided to take a shower and while in the shower he reports "blacking out" for several seconds and falling to his knees. Patient states that the next thing he remembered was his helping him up. He denies any confusion or tongue biting during or after this episode. His then told him to rest for the remainder of the day while she was at work. Patient reports doing this and having resolution of his chills and generalized weakness. Once his returned from work, she brought him to the hospital for further evaluation. Patient endorse mild left ankle and knee tenderness but denies any fever, headache, changes in his vision, dizziness, rhinorrhea, sore throat, dysphagia, chest pain, palpitations, leg swelling, SOB, cough, wheezing, sputum, abdominal pain, N/V/D/C, urinary output changes, hematuria, dysuria, purulent penile discharge, skin changes, back pain, neck pain, gait changes or any numbness/ tingling/weakness of any extremity. In the ED, patient was found to have a UTI on UA and a leukocytosis on CBC. Patient was afebrile and without tachycardia, tachypnea or lactic acidosis. He was given one dose of IV Levaquin for empiric UTI coverage. PMH: BPH, CAD s/p five TATO, urosepsis and recurrent UTI's PSH: Varicose Veins, Vasectomy, and cardiac stent placement Family: Father- of MD at age 69; Mother-CAD, DM2 and HTN Social: Denies tobacco, alcohol or illicit drug use; Lives at home with his ; Retired from sales industry Allergies: NKDA Home Medications: As per DEC PMD: Dr. Egan Urologist: Dr. Chacon (Previously Dr. Mari) Surgical Garment Assembly Supervisor: Dr. Ramos Present on Admission - Present on Admission Any Indicators Present on Admission: No Review of Systems - Review of Systems Review of Systems: As per HPI, otherwise negative Past Patient History - Infectious Disease Hx of Infectious Diseases: None - Tetanus Immunizations Tetanus Immunization: Unknown - Past Social History Smoking Status: Never Smoked - CARDIAC Hx Cardiac Disorders: Yes (CAD) Hx Hypertension: Yes - PULMONARY Hx Respiratory Disorders: No - NEUROLOGICAL Hx Neurological Disorder: No - HEENT Hx HEENT Problems: No - RENAL Hx Chronic Kidney Disease: No - ENDOCRINE/METABOLIC Hx Endocrine Disorders: No - HEMATOLOGICAL/ONCOLOGICAL Hx Blood Disorders: No - INTEGUMENTARY Hx Dermatological Problems: No - MUSCULOSKELETAL/RHEUMATOLOGICAL Hx Falls: No - GASTROINTESTINAL Hx Gastrointestinal Disorders: No - GENITOURINARY/GYNECOLOGICAL Hx Genitourinary Disorders: Yes Hx Urinary Tract Infection: Yes - PSYCHIATRIC Hx Psychophysiologic Disorder: No Hx Emotional Abuse: No Hx Physical Abuse: No Hx Substance Use: No - SURGICAL HISTORY Hx Coronary Stent: Yes (x7) - ANESTHESIA Hx Anesthesia Reactions: No Hx Malignant Hyperthermia: No Meds Allergies/Adverse Reactions: Allergies Allergy/AdvReac Type Severity Reaction Status Date / Time No Known Allergies Allergy Verified 12/28/17 14:21 Physical Exam - Constitutional Appears: Non-toxic, No Acute Distress - Head Exam Head Exam: ATRAUMATIC, NORMAL INSPECTION, NORMOCEPHALIC - Eye Exam Eye Exam: EOMI, Normal appearance, PERRL Pupil Exam: NORMAL ACCOMODATION, PERRL - ENT Exam ENT Exam: Mucous Membranes Moist, Normal Exam - Neck Exam Neck exam: Positive for: Full Rom, Normal Inspection. Negative for: Lymphadenopathy - Respiratory Exam Respiratory Exam: Clear to Auscultation Bilateral, NORMAL BREATHING PATTERN. absent: Accessory Muscle Use, Chest Wall Tenderness, Decreased Breath Sounds, Prolonged Expiratory Phase, Rales, Rhonchi, Wheezes, Respiratory Distress, Stridor - Cardiovascular Exam Cardiovascular Exam: REGULAR RHYTHM, RRR, +S1, +S2. absent: Bradycardia, Tachycardia, Clicks, Diastolic murmur, Gallop, Irregular Rhythm, JVD, Rubs, +S4 , Systolic Murmur - GI/Abdominal Exam GI & Abdominal Exam: Normal Bowel Sounds, Soft. absent: Distended, Firm, Guarding, Rebound, Tenderness - Extremities Exam Extremities exam: Positive for: full ROM, normal capillary refill, normal inspection, pedal pulses present. Negative for: calf tenderness, joint swelling , pedal edema, tenderness - Back Exam Back exam: NORMAL INSPECTION. absent: CVA tenderness (L), CVA tenderness (R) - Neurological Exam Neurological exam: Alert, CN II-XII Intact, Normal Gait, Oriented x3, Reflexes Normal - Psychiatric Exam Psychiatric exam: Normal Affect, Normal Mood - Skin Skin Exam: Dry, Intact, Normal Color, Warm Results - Vital Signs Recent Vital Signs: Last Vital Signs Temp 98 F 12/28/17 14:19 Pulse 78 12/28/17 17:30 Resp 17 12/28/17 17:30 BP 136/66 12/28/17 17:30 Pulse Ox 97 12/28/17 17:30 - Labs Result Diagrams: 12/28/17 14:30 12/28/17 14:30 - EKG Data EKG Interpreted by: Other EKG shows normal: Sinus rhythm Rate: Normal Assessment & Plan - Assessment and Plan (Free Text) Assessment: 72 year old male with a past medical history significant for BPH, CAD s/p five TATO, urosepsis and recurrent UTI's who presented after a syncopal episode approximately 12 hours prior to arrival with associated chills and generalized fatigue. In the ED, patient was found to have a UTI on UA and a leukocytosis on CBC. Patient was afebrile and without tachycardia, tachypnea or lactic acidosis. He was given one dose of IV Levaquin for empiric UTI coverage. Plan: 1. Urinary Tract Infection -UA showed positive nitrates, large LE, 25-30 WBC's, trace intact blood, 2-5 RBC 's and many bacteria -Leukocytosis to 14.0, afebrile and without tachycardia, tachypnea or lactic acidosis -Urine and blood cultures pending -IV Levaquin 750mg daily -Normal Saline at 100mls/hr -Tylenol PRN for fever -Urology consulted, all recommendations appreciated 2. Syncope with associated Fall -CT head showed no acute intracranial abnormalities -Chest X-Ray showed no active disease -EKG showed NSR at 75 beats/min -Orthostatic Vital Signs, Echo and Carotid Duplex pending -Motrin PRN for pain control -Fall precautions -Cardiology and Neurology consulted, all recommendations appreciated 3. History of BPH -Flomax 0.4mg PO daily 4. History of CAD -Continue home ASA, Plavix, Metoprolol and Lipitor GI Prophylaxis: Protonix DVT Prophylaxis: Heparin and SCD's Patient seen and case discussed with attending, Dr. Jolly. - Date & Time Date: 12/28/17 Time: 19:41 Decision To Admit - Pt Status Changed To: Hospital Disposition Of: Inpatient Admission - Admit Certification Admit to Inpatient:: After my assessment, the patient will require hospitalization for at least two midnights. This is because of the severity of symptoms shown, intensity of services needed, and/or the medical risk in this patient being treated as an outpatient. - . Bed Request Type: Telemetry <Zaina Jolly - Last Filed: 12/29/17 01:02> Results - Vital Signs Recent Vital Signs: Last Vital Signs Temp 98.4 F 12/28/17 22:54 Pulse 76 12/28/17 22:54 Resp 20 12/28/17 22:54 BP 169/91 H 12/28/17 22:54 Pulse Ox 98 12/28/17 21:00 - Labs Result Diagrams: 12/28/17 14:30 12/28/17 14:30 Attending/Attestation - Attestation I have personally seen and examined this patient.: Yes I have fully participated in the care of the patient.: Yes I have reviewed all pertinent clinical information: Yes Notes (Text): 12/29/17 00:56 Agree with documentation.pt has orders for Heparin sc and SCDs.Will discontinue SCDs.
--- NOTE | 2017-12-28 19:36 | CARD ---
APPROVED REPORT EKG Measurement Heart [id number] ID [id number] <Conclusion> Normal sinus rhythm Nonspecific T wave abnormality Abnormal ECG
[2017-12-28] MEDS: Sodium Chloride 0.9% 1,000 ML IV SCH (19:50)
[2017-12-29] MEDS ORDERED: Pantoprazole 40 mg EC Tab PO SCH (06:00)
[2017-12-29 06:30] LABS: BASO # 0.03 K/mm3 (0.0-2.0); BASO % 0.3 % (0.0-3.0); EOS # 0.1 (0.0-0.7); GRAN # 6.33 (1.4-6.5); GRAN % 60.1 % (50.0-68.0); HEMOGLOBIN 11.5 g/dL (14.0-18.0); LYMPH # 2.8 (1.2-3.4); LYMPH % 26.5 % (22.0-35.0); MEAN CELL VOLUME 90.9 fl (80.0-105.0); MEAN CORPUSCULAR HEMOGLOBIN 29.8 pg (25.0-35.0); MEAN CORPUSCULAR HGB CONC 32.8 g/dl (31.0-37.0); MONO # 1.3 (0.1-0.6); MONO % 12.1 % (1.0-6.0); RBC 3.86 10^6/uL (3.5-6.1); RED CELL DISTRIBUTION WIDTH 13.1 % (11.5-14.5); WHITE BLOOD COUNT 10.5 10^3/ul (4.5-11.0)
[2017-12-29] MEDS: Sodium Chloride 0.9% 1,000 ML IV SCH (06:36)
[2017-12-29 06:50] LABS: ALBUMIN 3.8 g/dL (3.0-4.8); ALT/SGPT 29 U/L (7-56); AST/SGOT 31 U/L (17-59); BLOOD UREA NITROGEN 17 mg/dL (7-21); CALCIUM 9.4 mg/dL (8.4-10.5); GFR AFRICAN-AMERICAN > 60; GFR NON-AFRICAN AMERICAN > 60
[2017-12-29 06:59] LABS: INR 1.14 (0.93-1.08); PARTIAL THROMBOPLASTIN TIME 36.9 Seconds (25.1-36.5); PROTHROMBIN TIME 13.1 SECONDS (9.4-12.5)
[2017-12-29 07:03] VITALS: O2SAT 94
[2017-12-29] MEDS ORDERED: Metoprolol Succinate 50 mg XL Tab PO SCH (10:00)
[2017-12-29] MEDS ORDERED: levoFLOXacin 750 mg in D5W 150 ML BAG IVPB SCH (10:00)
--- NOTE | 2017-12-29 10:12 | RAD ---
PROCEDURE: Left Ankle Radiographs. HISTORY: Pain in L ankle following fall COMPARISON: None FINDINGS: BONES: Normal. No fracture. JOINTS: Normal. No osteoarthritis. Ankle mortise maintained. Talar dome intact SOFT TISSUES: Normal. OTHER FINDINGS: None. IMPRESSION: Normal left ankle radiographs.
--- NOTE | 2017-12-29 10:12 | RAD ---
PROCEDURE: Left Knee Radiographs. HISTORY: Pain. COMPARISON: None. FINDINGS: BONES: Normal. No fracture. JOINTS: Normal. No osteoarthritis. JOINT EFFUSION: None. OTHER FINDINGS: None. IMPRESSION: Normal radiographs of the left knee.
[2017-12-29 12:22] VITALS: BP 156/93; PULSE 72; RESP 20; TEMP 97.6
--- NOTE | 2017-12-29 12:36 | CON ---
DATE: NEUROLOGY CONSULTATION CHIEF COMPLAINT: Syncope. HISTORY OF PRESENT ILLNESS: This is a 72-year-old man with history of BPH, CAD, status post 5 drug-eluting stents, urosepsis, recurrent UTIs, presented after syncopal episode 12 hours prior to his arrival with generalized chills and fatigue. He reported that he felt lethargic, went back to sleep and woke up and felt normal and then decided to take hot shower where he blacked out for a few seconds, fall to his knees, but no head injury, no tongue biting, no history of any seizures in the past. He had a carotid Doppler in 08/2017, which showed 39% proximal ICA stenosis. Otherwise, no focal weakness of the extremities, doing well, following all commands. CAT scan of the head showed no acute intracranial abnormality. He had mild UTI, for which he is getting empiric antibiotics. PAST MEDICAL HISTORY: BPH, CAD, status post 5 TATO, urosepsis, recurrent UTIs. PAST SURGICAL HISTORY: Varicose veins, vasectomy, cardiac stent placement. FAMILY HISTORY: Noncontributory. SOCIAL HISTORY: No illicit drug use, smoking or EtOH abuse. ALLERGIES: NO KNOWN DRUG ALLERGIES. MEDICATIONS: Reviewed by nursing reconciliation sheet. REVIEW OF SYSTEMS: A 14-point review of systems in negative except as per the HPI. PHYSICAL EXAMINATION: VITAL SIGNS: Temperature of 97.5, pulse rate of 67, blood pressure 123/66, respiratory rate 18, and oxygen saturation 95% on room air. GENERAL: Patient is sitting up in bed, in no acute distress. HEENT: Atraumatic and normocephalic. PERRLA. Extraocular muscles intact. NECK: Supple. No JVD, no adenopathy noted. LUNGS: Clear to auscultation. No adventitious sounds. HEART: S1 and S2. Normal rate and rhythm. No murmurs, rubs, or gallops. ABDOMEN: Soft, nontender, and nondistended. Bowel sounds present. EXTREMITIES: No clubbing. No cyanosis. Peripheral pulses 2+ felt bilaterally. NEUROLOGIC: Patient is alert and oriented to person, place, month and year. Speech is fluent without any errors. Cranial nerves II through XII intact. Motor examination: Moves all extremities equally. Toe is downgoing bilaterally. Sensory examination: Light touch, pinprick, proprioception, and vibration are intact. DTRs are 2+ throughout. Coordination: Ljdhbb-dv-oxuk intact. Gait is deferred for now. LABORATORY DATA: Sodium is 142, potassium is 4.3, chloride 107, carbon dioxide 25, BUN , creatinine 0.9. Random glucose of 117. His UA is positive for large leukocyte esterase and positive nitrites indicating UTI. ASSESSMENT AND PLAN: This is a 72-year-old man with past medical history of benign prostatic hypertrophy, coronary artery disease, status post 5 drug-eluting stents, urosepsis, recurrent urinary tract infections, presented after syncopal episode 12 hours prior to the arrival with associated chills and generalized fatigue, found to have a urinary tract infection on urinalysis and some mild leukocytosis, being treated empirically for urinary tract infection coverage with Levaquin. His syncope was likely secondary to a vasovagal episode rather than seizure. At this time, recommend: 1. Continue aspirin, Plavix and Lipitor for stroke prevention. 2. Avoid sudden movements. 3. Advised adequate hydration throughout the day. 4. Orthostatic vital signs. 5. He is clinically stable for discharge for p.o. antibiotics for UTI and can follow up with his urologist for his underlying BPH. Once again, thank you for this consultation. William Daniel MD
--- NOTE | 2017-12-29 16:46 | CARD ---
APPROVED REPORT EXAM: Two-dimensional and M-mode echocardiogram with Doppler and color Doppler. INDICATION Syncope 2D DIMENSIONS Left Atrium (2D)4.4 (1.6-4.0cm)IVSd1.1 (0.7-1.1cm) LVDd4.9 (3.9-5.9cm)PWd1.2 (0.7-1.1cm) LVDs3.1 (2.5-4.0cm)FS (%) 37.2 % LVEF (%)67.2 (>50%) M-Mode DIMENSIONS Aortic Root3.50 (2.2-3.7cm)Aortic Cusp Exc.1.90 (1.5-2.0cm) Aortic Valve AoV Peak Cgrggkci318.0cm/Colleen Peak GR.6mmHg Mitral Valve MV E Oojtvqoj10.1cm/sMV A Gfsgbpcv58.8cm/sE/A ratio0.8 TDI E/Lateral E'0.0E/Medial E'0.0 LEFT VENTRICLE The left ventricle is normal size. There is normal left ventricular wall thickness. The left ventricular ejection fraction is within the normal range. Infero-lateral hypokinesis Transmitral Doppler flow pattern is Grade I-abnormal relaxation pattern. RIGHT VENTRICLE The right ventricle is normal size. There is normal right ventricular wall thickness. The right ventricular systolic function is normal. ATRIA The left atrium size is normal. The right atrium size is normal. AORTIC VALVE The aortic valve is not well visualized. No aortic regurgitation is present. There is no aortic valvular stenosis. MITRAL VALVE The mitral valve is moderately thickened. There is no mitral valve regurgitation noted. There is no mitral valve stenosis. TRICUSPID VALVE The tricuspid valve is normal in structure. GREAT VESSELS The aortic root is normal in size. PERICARDIAL EFFUSION There is a trace loculated anterior pericardial effusion. <Conclusion> The left ventricle is normal size. There is normal left ventricular wall thickness. The left ventricular ejection fraction is within the normal range. Infero-lateral hypokinesis Transmitral Doppler flow pattern is Grade I-abnormal relaxation pattern.
--- NOTE | 2017-12-30 10:27 | CON ---
DATE: 12/29/2017 CARDIOLOGY CONSULTATION HISTORY OF PRESENT ILLNESS: The patient is a 71-year-old male who presented with a syncopal episode during his hot shower. PAST MEDICAL HISTORY: Includes history of chronic UTI with recurrent infections as well as manipulations by . His cardiac history includes a history of multivessel PTCA in the past. His last catheterization performed in 12/2015, found to have patent stents. His LV function was normal. The patient denies chest pain, denies shortness of breath. His past medical history also includes a history of hypercholesterolemia. SOCIAL HISTORY: The patient does not smoke. REVIEW OF SYSTEMS: A 14-point review of systems was reviewed in detail. No cardiac symptomatology was noted. PHYSICAL EXAMINATION: VITAL SIGNS: Stable. There are no orthostatic changes. NECK: Negative JVD. LUNGS: Without rales. HEART: With S1 and S2. EXTREMITIES: Without edema. LABORATORY DATA: Noted, troponins are negative. The hemoglobin is 11.5, white count is 10.5. IMPRESSION: 1. Syncopal episode. 2. No cardiac identifiable cause of his syncope. 3. Recurrent urinary tract infections. 4. History of percutaneous transluminal coronary angioplasty and stent. 5. Normal left ventricular function. 6. Hypercholesterolemia. ASSESSMENT AND PLAN: Given these findings, there are no cardiac identifiable causes for his syncope. I have discussed with the patient that when he is not feeling well to avoid hot showers, which may be related to the cause of his syncope. We will arrange for an outpatient stress test once his urinary tract infection is cleared. Ryan Ramos MD
--- NOTE | 2017-12-30 19:28 | CP.PCM.DIS ---
Provider - Provider Date of Admission: 12/28/17 18:03 Attending physician: Rissa Wills MD Primary care physician: Earl Egan MD Consults: Urology: Oswaldo Neuro: María Cardio: Richard Time Spent in preparation of Discharge (in minutes): 42 Hospital Course - Lab Results Lab Results: Most Recent Lab Values WBC 10.5 10^3/ul (4.5-11.0) D 12/29/17 06:00 RBC 3.86 10^6/uL (3.5-6.1) 12/29/17 06:00 Hgb 11.5 g/dL (14.0-18.0) L 12/29/17 06:00 Hct 35.1 % (42.0-52.0) L 12/29/17 06:00 MCV 90.9 fl (80.0-105.0) 12/29/17 06:00 MCH 29.8 pg (25.0-35.0) 12/29/17 06:00 MCHC 32.8 g/dl (31.0-37.0) 12/29/17 06:00 RDW 13.1 % (11.5-14.5) 12/29/17 06:00 Plt Count 281 10^3/uL (120.0-450.0) 12/29/17 06:00 MPV 11.0 fl (7.0-11.0) 12/29/17 06:00 Gran % 60.1 % (50.0-68.0) 12/29/17 06:00 Lymph % (Auto) 26.5 % (22.0-35.0) 12/29/17 06:00 [place] % (Auto) 12.1 % (1.0-6.0) H 12/29/17 06:00 Eos % (Auto) 1.0 % (1.5-5.0) L 12/29/17 06:00 Baso % (Auto) 0.3 % (0.0-3.0) 12/29/17 06:00 Gran # 6.33 (1.4-6.5) 12/29/17 06:00 Lymph # (Auto) 2.8 (1.2-3.4) 12/29/17 06:00 [place] # (Auto) 1.3 (0.1-0.6) H 12/29/17 06:00 Eos # (Auto) 0.1 (0.0-0.7) 12/29/17 06:00 Baso # (Auto) 0.03 K/mm3 (0.0-2.0) 12/29/17 06:00 PT 13.1 SECONDS (9.4-12.5) H 12/29/17 06:00 INR 1.14 (0.93-1.08) H 12/29/17 06:00 APTT 36.9 Seconds (25.1-36.5) H 12/29/17 06:00 pO2 42 mm/Hg (30-55) 12/28/17 14:30 VBG pH 7.35 (7.32-7.43) 12/28/17 14:30 VBG pCO2 50.0 (40-60) 12/28/17 14:30 VBG HCO3 27.6 mmol/l (21-28) 12/28/17 14:30 VBG Total CO2 29.1 mmol.L (22-28) H 12/28/17 14:30 VBG O2 Sat (Calc) 82.3 % (40-65) H 12/28/17 14:30 VBG Base Excess 1.2 mmol/L (0.0-2.0) 12/28/17 14:30 VBG Potassium 4.3 mmol/L (3.6-5.2) 12/28/17 14:30 Sodium 137.0 mmol/L (132-148) 12/28/17 14:30 Chloride 105.0 mmol/L (98-107) 12/28/17 14:30 Glucose 105 mg/dl (75-110) 12/28/17 14:30 Lactate 1.3 mmol/L (0.7-2.1) 12/28/17 14:30 FiO2 21.0 % 12/28/17 14:30 Sodium 142 mmol/L (132-148) 12/29/17 06:00 Potassium 4.3 mmol/L (3.6-5.0) 12/29/17 06:00 Chloride 107 mmol/L (98-107) 12/29/17 06:00 Carbon Dioxide 25 mmol/L (21-33) 12/29/17 06:00 Anion Gap 14 (10-20) 12/29/17 06:00 BUN 17 mg/dL (7-21) 12/29/17 06:00 Creatinine 0.9 mg/dl (0.8-1.5) 12/29/17 06:00 Est GFR ( Amer) > 60 12/29/17 06:00 Est GFR (Non-Af Amer) > 60 12/29/17 06:00 POC Glucose (mg/dL) 102 mg/dL (65-110) 12/28/17 14:32 Random Glucose 116 mg/dL (70-110) H 12/29/17 06:00 Calcium 9.4 mg/dL (8.4-10.5) 12/29/17 06:00 Total Bilirubin 1.1 mg/dL (0.2-1.3) 12/29/17 06:00 AST 31 U/L (17-59) 12/29/17 06:00 ALT 29 U/L (7-56) 12/29/17 06:00 Alkaline Phosphatase 68 U/L (38-126) 12/29/17 06:00 Total Creatine Kinase 52 U/L (35-230) 12/28/17 14:30 Troponin I < 0.01 ng/mL 12/28/17 14:30 Total Protein 7.5 g/dL (5.8-8.3) 12/29/17 06:00 Albumin 3.8 g/dL (3.0-4.8) 12/29/17 06:00 Globulin 3.7 gm/dL 12/29/17 06:00 Albumin/Globulin Ratio 1.0 (1.1-1.8) L 12/29/17 06:00 Venous Blood Potassium 4.3 mmol/L (3.6-5.2) 12/28/17 14:30 Urine Color Yellow (YELLOW) 12/28/17 17:15 Urine Appearance Clear (CLEAR) 12/28/17 17:15 Urine pH 6.0 (4.7-8.0) 12/28/17 17:15 Ur Specific [place] 1.010 (1.005-1.035) 12/28/17 17:15 Urine Protein Negative mg/dL (<30 mg/dL) 12/28/17 17:15 Urine Glucose (UA) Negative mg/dL (NEGATIVE) 12/28/17 17:15 Urine Ketones Negative mg/dL (NEGATIVE) 12/28/17 17:15 Urine Blood Trace-intact (NEGATIVE) H 12/28/17 17:15 Urine Nitrate Positive (NEGATIVE) H 12/28/17 17:15 Urine Bilirubin Negative (NEGATIVE) 12/28/17 17:15 Urine Urobilinogen 0.2 E.U./dL (<1 E.U./dL) 12/28/17 17:15 Ur Leukocyte Esterase Large Y[place]iko/uL (NEGATIVE) H 12/28/17 17:15 Urine RBC 2 - 5 /hpf (0-2) 12/28/17 17:15 Urine WBC 25 - 30 /hpf (0-6) 12/28/17 17:15 Ur Epithelial Cells None /hpf (0-5) 12/28/17 17:15 Urine Bacteria Many (NEG) 12/28/17 17:15 Urine Other Uyeast 12/28/17 17:15 - Hospital Course Hospital Course: 72 year old male with a past medical history significant for BPH, CAD s/p five TATO, urosepsis and recurrent UTI's who presented after a syncopal episode approximately 12 hours prior to arrival with associated chills and generalized fatigue. In the ED, patient was found to have a UTI on UA and a leukocytosis on CBC. Patient was afebrile and without tachycardia, tachypnea or lactic acidosis. He was given one dose of IV Levaquin for empiric UTI coverage and started on IV Levaquin 750mg daily. He was also started on Normal Saline at 100mls/hr and Tylenol PRN for fever. Urology consulted. A CT head showed no acute intracranial abnormalities, a Chest X-Ray showed no active disease and an EKG showed NSR at 75 beats/min. Orthostatic Vital Signs and Echo were within normal limits. Knee and ankle radiographs were normal. Fall precautions were put in place. Cardiology and Neurology consulted. Patient was started on Flomax 0.4mg PO daily, ASA, Plavix, Metoprolol and Lipitor. Protonix and Heparin were started for prophylaxis. Patient was discharged on 12/29/17 with a course of PO levaquin to complete and instructions to follow up with urology and PMD. - Date & Time of H&P Date of H&P: 12/28/17 Time of H&P: 19:26 Discharge Exam - Head Exam Head Exam: ATRAUMATIC, NORMAL INSPECTION, NORMOCEPHALIC - Eye Exam Eye Exam: EOMI, Normal appearance, PERRL Pupil Exam: NORMAL ACCOMODATION, PERRL - ENT Exam ENT Exam: Mucous Membranes Moist - Neck Exam Neck exam: Full Rom, Normal Inspection - Respiratory Exam Respiratory Exam: Clear to PA & Lateral, NORMAL BREATHING PATTERN, UNREMARKABLE - Cardiovascular Exam Cardiovascular Exam: REGULAR RHYTHM - GI/Abdominal Exam GI & Abdominal Exam: Normal Bowel Sounds, Unremarkable - Extremities Exam Extremities exam: normal inspection - Back Exam Back exam: NORMAL INSPECTION - Neurological Exam Neurological exam: Alert, CN II-XII Intact, Normal Gait, Oriented x3, Reflexes Normal - Psychiatric Exam Psychiatric exam: Normal Affect, Normal Mood - Skin Skin Exam: Dry, Intact, Normal Color, Warm Discharge Plan - Discharge Medications Prescriptions: levoFLOXacin [Levaquin] 750 mg PO DAILY #3 tab - Follow Up Plan Condition: FAIR Disposition: HOME/ ROUTINE Instructions: Levofloxacin (Systemic), Urinary Tract Infection in Men (DC) Additional Instructions: Please follow up with your primary care provider within one to two weeks Please continue with your scheduled appointment with Dr. Chacon later this month Please take all medications as prescribed If your symptoms worsen or persist, please seek emergency medical attention Referrals: Karlo Chacon MD [Staff Provider] - Earl Egan MD [Primary Care Provider] - Ryan Ramos MD [Staff Provider] -
== END 2017-12-29 13:59 | disposition home or self-care (01) | DRG 690 ==
LOC: ED 14:07 → ERH 18:03 → 2RNO 22:45
PROVIDERS: ADMIT Internal Medicine; ATTEND Internal Medicine
DX: N39.0 Urinary tract infection, site not specified (principal); I10 Essential (primary) hypertension; R55 Syncope and collapse; N40.0 Benign prostatic hyperplasia without lower urinary tract symptoms; I25.10 Atherosclerotic heart disease of native coronary artery without angina pectoris; Z95.5 Presence of coronary angioplasty implant and graft

== ENCOUNTER 2018-03-14 07:03 | Day surgery (SDC) | payer MEDICARE, OTHER ==
[2018-03-08 12:12] VITALS: BMI 31.0
[2018-03-14] MEDS ORDERED: cefTRIAXone (Rocephin) 1 gm Inj ONE (09:13)
[2018-03-14] MEDS ORDERED: HYDROmorphone 0.5 mg/0.5 ml ISec IVP PRN (09:18)
[2018-03-14] MEDS ORDERED: Midazolam 2 MG/2 ML VIAL ONE (09:26)
[2018-03-14] MEDS ORDERED: Propofol 10 mg/ml Inj (20 ML) ONE (09:26)
[2018-03-14] MEDS ORDERED: Lactated Ringer's 1,000 ML IV SCH (09:30)
[2018-03-14 12:23] VITALS: RESP 18
[2018-03-14 13:34] VITALS: BP 127/61; PULSE 53; O2SAT 100
[2018-03-14 13:52] VITALS: TEMP 97.5
--- NOTE | 2018-03-14 14:44 | OP ---
PROCEDURE DATE: 03/14/2018 PREOPERATIVE DIAGNOSES: Bladder outlet obstruction and benign prostatic hypertrophy. POSTOPERATIVE DIAGNOSES: Bladder outlet obstruction and benign prostatic hypertrophy. PROCEDURES: Cystoscopy with GreenLight laser vaporization of prostate. ATTENDING SURGEON: Karlo Chacon MD ANESTHESIA: General. SPECIMENS: There were none. DRAINS: A 20 [place] 3-way Rivera catheter. COMPLICATIONS: There were none. OPERATIVE FINDINGS: After informed consent was obtained, the patient was taken to the operating room and placed on the operating table. Anesthesia was administered. The patient was then placed in dorsal lithotomy position, and prepped and draped in usual sterile fashion. A 21 [place] [employer] laser scope with a visualizing obturator was placed in the patient's urethra and advanced proximally under direct vision until the bladder was entered. A full survey inspection of bladder was then performed, which revealed no stones or tumors of the bladder. Bladder had grade 2 to 3 trabeculation with multiple cellules and open diverticulum. There was a median lobe noted growing into the bladder. At this point, the scope was removed to the level of the verumontanum. The view from the verumontanum revealed a markedly enlarged prostate with occlusive-appearing lateral lobes and the median lobe growing into the bladder. At this point, a GreenLight laser fiber was obtained. It was passed through the scope and systematic vaporization of the prostate was performed. The prostate was vaporized starting from the bladder neck proximally, working up to the level of the verumontanum distally. The lateral lobes were both vaporized and median lobe tissue was vaporized down to the bladder neck region. The apical tissue at the 12 o'clock position was also vaporized. Any bleeding points encountered during the vaporization were controlled using the GreenLight laser fiber. After vaporization was complete, the view from the verumontanum revealed a widely opened bladder neck and prostatic fossa. The bladder was inspected. There was no debris or chips. The bladder was irrigated out. Final inspection was made for any bleeding points which were then controlled using the laser and when hemostasis was complete, the procedure was completed. The bladder was then drained and the scope was removed. A 20 [place] [employer] 3-way Rivera catheter was passed and placed to continuous bladder irrigation. The patient tolerated the procedure well. He was returned to the supine position and taken to the recovery room awake in stable condition. Karlo Chacon MD [facility] # [id number]
== END 2018-03-14 14:15 | disposition home or self-care (01) ==
LOC: SDS 07:03
PROVIDERS: ATTEND Urology
DX: N40.1 Benign prostatic hyperplasia with lower urinary tract symptoms (principal); N13.8 Other obstructive and reflux uropathy; N32.0 Bladder-neck obstruction; N32.3 Diverticulum of bladder; I10 Essential (primary) hypertension; E78.5 Hyperlipidemia, unspecified; I25.10 Atherosclerotic heart disease of native coronary artery without angina pectoris; Z95.5 Presence of coronary angioplasty implant and graft
CPT/HCPCS: 52648; A4358; J0131; J0696; J1170; J2250; J2704; J3010; J7030; J7120 ×2